=== PATIENT | male | born 1970 | race Caucasian/White ===

== ENCOUNTER → 2022-10-18 | Outpatient (CLI) | payer BC ==
[~2022-10-18] MED LIST: CATHETER FLUSH 10 ML SYR IVP PRN
[2022-10-18 09:15] VITALS: BP 124/70
--- NOTE | 2022-10-18 11:03 | Cardiology Stress Test Report ---
Stress Test Report Date of Procedure/Referring: Date of Procedure: Oct 18, 2022 PCP Candy Castelan MD Admitting Physician Admitting Physician: Attending Physician: Zelalem Pardo MD Indications: CP Baseline Heart Rate: 70 Baseline Blood Pressure: Blood Pressure Systolic: 124 Blood Pressure Diastolic: 70 Vital Signs Date Time Temp Pulse Resp B/P (MAP) Pulse Ox O2 Delivery O2 Flow Rate FiO2 10/18/22 09:15 67 16 124/70 (88) 97 Room Air Baseline Vital Signs Vital Signs Date Time Temp Pulse Resp B/P (MAP) Pulse Ox O2 Delivery O2 Flow Rate FiO2 10/18/22 09:15 67 16 124/70 (88) 97 Room Air Baseline EKG: Baseline EKG: RBBB Summary: After explaining the procedure and details to the patient, he signed the consent and was brought to the stress nuclear laboratory. Patient exercised on standard Carlos protocol, EKG, heart rate and blood pressure were monitored continuously, resting and stress doses of radio tracer were injected, imaging was acquired and reviewed in the short axis, horizontal long axis and vertical long axis views Patient was able to exercise for a total of 10 minutes on Carlos protocol, METs 11.7 Maximum heart rate 159 Maximum blood pressure 202/80 Stress EKG, Minimal nondiagnostic changes Recovery EKG, Return to baseline TID: 1.08 SSS: 0 SDS: 0 EF: 53 Conclusion: Excellent exercise tolerance for a total of 10 minutes on standard Carlos protocol, 11.7 METS achieving 93% of maximal expected heart rate Appropriate heart rate response to exercise with hypertensive response to exercise with peak blood pressure 202/80 return to baseline during recovery Baseline right bundle branch block with nondiagnostic EKG changes with exercise return to baseline during recovery No significant ischemia or infarction noted on SPECT images Normal left ventricular size, ejection fraction 53% Copy Copies To 1: CANDY CASTELAN MD, BASHAR J MD Oct 18, 2022 11:03
== END ==
LOC: CARD 07:56
PROVIDERS: ATTEND Internal Medicine Cardiovascular Disease
DX: R07.9 Chest pain, unspecified (principal)
CPT/HCPCS: 78452; 93017; A9502; C8929; 93306

== ENCOUNTER → 2023-03-27 | Outpatient (CLI) | payer BC ==
--- NOTE | 2023-03-27 09:46 | Diagnostic Imaging Report ---
PROCEDURE: US Hepatic (Liver). INDICATION: E80.6-hyperbilirubinemia TECHNIQUE: Multiple grayscale sonographic images were obtained of the right upper quadrant of the abdomen. CORRELATION STUDY: None FINDINGS: LIVER: Liver length 16.1 cm. Anechoic cyst right mid hepatic lobe, 1.6 x 1.1 x 1 cm. The main portal vein is patent and with normal direction of flow. GALLBLADDER: Cholecystectomy. COMMON BILE DUCT: Nondilated at 0.4 cm. PANCREAS: Visualized portions appearing unremarkable. AORTA/IVC: Visualized portions, unremarkable. RIGHT KIDNEY: 11.2 x 4.9 x 5.7 cm. No hydronephrosis. OTHER: None. IMPRESSION: 1. Probable simple hepatic cyst. Liver otherwise unremarkable. 2. Cholecystectomy. No bile duct dilatation. Dictated by: Dictated on workstation # [id number]
== END ==
LOC: RAD 07:15
PROVIDERS: ATTEND Nurse Practitioner
DX: E80.6 Other disorders of bilirubin metabolism (principal); Z90.49 Acquired absence of other specified parts of digestive tract
CPT/HCPCS: 76705